=== PATIENT | female | born 1995 | race Caucasian/White ===

== ENCOUNTER 2018-05-18 18:16 | Emergency (ER) | payer MEDICAID, OTHER ==
[2018-05-18 18:41] VITALS: PULSE 102
[2018-05-18] MEDS ORDERED: Rocephin 1000 MG INJ IM ONE (19:42)
[2018-05-18] MEDS ORDERED: Rocephin 1000 MG INJ ONE (19:45)
[2018-05-18] MEDS ORDERED: XYLOCAINE 1% HCL 20 ML MDV ONE (19:46)
--- NOTE | 2018-05-18 20:03 | ERPHSYRPT ---
- History of Present Illness Time Seen by Provider: 05/18/18 19:10 Source: patient, family Exam Limitations: no limitations Patient Subjective Stated Complaint: pt reports boil to tailbone for jade 1 wk- states that she was treated at [facility] and found out she was - states that since that time wound has began to drain-increase drainage with time -states that drainage is green in color and smells very bad-denies fever-states that it hurts however with being pregant she can only take tylenol Triage Nursing Assessment: pt pink warm and eta-mcydu-owhhjndmr all questions correctly-redness swelling noted to tailbone area-drainage noted-foul smell noted-resp easy and nonlabored Physician History: 22 y/o white female who is 4 weeks presents with tender, red area of skin overlying tailbone. now with drainage. pt has had sx for a week. Timing/Duration: week(s) (1) Quality: burning, painful Severity: mild (worse if pressure on it) Possible Causes: other (pilonidal cyst) Associated Symptoms: change in skin texture, No difficulty breathing, No fever Allergies/Adverse Reactions: No Known Drug Allergies Allergy (Unverified 05/18/18 18:41) Hx Tetanus, Diphtheria Vaccination/Date Given: Yes Hx Influenza Vaccination/Date Given: No Hx Pneumococcal Vaccination/Date Given: No Immunizations Up to Date: Yes - Review of Systems Constitutional: No Symptoms Eyes: No Symptoms Ears, Nose, & Throat: No Symptoms Respiratory: No Symptoms Cardiac: No Symptoms Abdominal/Gastrointestinal: No Symptoms Genitourinary Symptoms: No Symptoms Musculoskeletal: No Symptoms Skin: Other (tender localized tenderness buttock) Neurological: No Symptoms Psychological: No Symptoms Endocrine: No Symptoms Hematologic/Lymphatic: No Symptoms Immunological/Allergic: No Symptoms All Other Systems: Reviewed and Negative - Past Medical History Pertinent Past Medical History: No Neurological History: No Pertinent History ENT History: No Pertinent History Cardiac History: No Pertinent History Respiratory History: No Pertinent History Endocrine Medical History: No Pertinent History Musculoskeletal History: No Pertinent History GI Medical History: No Pertinent History History: No Pertinent History Psycho-Social History: No Pertinent History Female Reproductive Disorders: No Pertinent History - Past Surgical History Past Surgical History: No Neuro Surgical History: No Pertinent History Cardiac: No Pertinent History Respiratory: No Pertinent History Gastrointestinal: No Pertinent History Genitourinary: No Pertinent History Musculoskeletal: No Pertinent History Female Surgical History: No Pertinent History - Social History Smoking Status: Current every day smoker How long have you smoked: yrs Exposure to second hand smoke: Yes Drug Use: none Patient Lives Alone: No - Female History Hx Now: Yes (5 wks) - Nursing Vital Signs Nursing Vital Signs: Initial Vital Signs Temperature 99.1 F 05/18/18 18:34 Pulse Rate 102 H 05/18/18 18:34 Respiratory Rate 18 05/18/18 18:34 Blood Pressure 107/74 05/18/18 18:34 O2 Sat by Pulse Oximetry 100 05/18/18 18:34 Pain Scale Pain Intensity 7 - Physical Exam General Appearance: mild distress, alert, anxiety Eye Exam: PERRL/EOMI, eyes nml inspection Ears, Nose, Throat Exam: normal ENT inspection Neck Exam: normal inspection, non-tender, supple, full range of motion Respiratory Exam: normal breath sounds, lungs clear, airway intact, No chest tenderness, No respiratory distress Cardiovascular Exam: regular rate/rhythm, normal heart sounds, normal peripheral pulses Gastrointestinal/Abdomen Exam: soft, normal bowel sounds, rebound, No tenderness , No guarding Pelvic Exam: not done Rectal Exam: deferred Back Exam: normal inspection, normal range of motion, No CVA tenderness, No vertebral tenderness Extremity Exam: normal inspection, normal range of motion, pelvis stable Neurologic Exam: alert, oriented x 3, cooperative, shank boner II-XII nml as tested, normal mood/affect Skin Exam: other (infected pilonidal cyst upper midline buttock with single midline pore present. pus expressed out until no more pus present. pus with malodor.) Lymphatic Exam: No adenopathy SpO2 Interpretation: normal SpO2: 100 Oxygen Delivery: Room Air - Course Nursing assessment & vital signs reviewed: Yes Ordered Tests: Medication Summary Discontinued Medications Generic Name Dose Route Start Last Admin Trade Name Freq PRN Reason Stop Dose Admin Acetaminophen 650 mg 05/18/18 20:05 Tylenol 325 Mg PO 05/18/18 20:06 STAT STA Ceftriaxone Sodium 1,000 mg 05/18/18 19:42 05/18/18 19:52 Rocephin 1000 Mg Inj IM 05/18/18 19:43 1,000 mg STAT ONE Administration Ceftriaxone Sodium Confirm 05/18/18 19:45 Rocephin 1000 Mg Inj Administered 05/18/18 19:46 Dose 1,000 mg .ROUTE .STK-MED ONE Lidocaine HCl Confirm 05/18/18 19:46 Xylocaine 1% Hcl 20 Ml Mdv Administered 05/18/18 19:47 Dose 3 ml .ROUTE .STK-MED ONE - Progress Progress: improved, re-examined Progress Note: 05/18/18 20:12 pts pain improved with expression and removal of pus from site. - Departure Time of Disposition: 20:13 Departure Disposition: Home Clinical Impression: Pilonidal cyst with abscess Condition: Stable Critical Care Time: No Referrals: ALYCIA MONTES DE OCA [Primary Care Provider] - Additional Instructions: take medications as prescribed. sitz bath with warm soapy water or epsom salts two times daily. follow up with primary doctor for persistent symptoms. return to ER for worsening symptoms Prescriptions: Cephalexin Mh 500 mg [Keflex 500 mg] 500 mg PO TID #21 capsule
[2018-05-18] MEDS ORDERED: TYLENOL 325 MG PO STA (20:05)
[2018-05-18] MEDS ORDERED: TYLENOL 325 MG ONE (20:28)
[2018-05-18 20:38] VITALS: O2SAT 98
[2018-05-18 20:39] VITALS: BP 107/74
== END 2018-05-18 20:39 | disposition home or self-care (01) ==
LOC: ED 18:16
DX: O26.891 Other specified pregnancy related conditions, first trimester (principal); Z3A.01 Less than 8 weeks gestation of pregnancy; L05.01 Pilonidal cyst with abscess
CPT/HCPCS: 96372; 99283; J0696; A9270-GY

== ENCOUNTER 2022-06-12 16:12 | Emergency (ER) | payer OTHER ==
[2022-06-12 16:29] VITALS: BP 162/94
[2022-06-12] MEDS ORDERED: TORAdol 30 mg Injection IM ONE (16:45)
--- NOTE | 2022-06-12 16:50 | ERPHSYRPT ---
- History of Present Illness Time Seen by Provider: 06/12/22 16:19 Source: patient Exam Limitations: no limitations Patient Subjective Stated Complaint: PT states "I will admit you are my second opinion. I dropped a boom box on my right hand this morning and I went to [facility] and they said it was badly bruised and to take motrin but that is not helping and the pain is horrible." Triage Nursing Assessment: PT presented alert and oriented X3, skin pwd Pt ambulates with an upright steady gait, able to speak in clear full sentences. PT right hand swollen and bruised. Physician History: 27 years old right-handed dominant female presented in the ER with chief complaint of right hand pain and swelling after a heavy Bluetooth speaker fell on her right hand while she was cleaning at home this morning around 12:30 AM. Patient reports moderate to severe sharp pain with associated swelling and more pain with movements at wrist and fingers with radiation to distally and proximally right upper extremity. She was seen at [facility] and per patient her x-ray was negative for fracture dislocation, was given ibuprofen 600 which she has taken 1 dose and does not feel much relief and decided to be seen in this ER. Patient is able to move her wrist and fingers with minimal pain. Reports having occasional tingling sensation in the fingers. 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 Occurred: this morning Method of Injury: direct blow Quality: sharpness Severity of Pain-Max: moderate Severity of Pain-Current: moderate Extremities Pain Location: hand: right Modifying Factors: Improves With: immobilization. Worsens With: movement Associated Symptoms: none Allergies/Adverse Reactions: No Known Drug Allergies Allergy (Verified 06/12/22 16:29) Home Medications: Venlafaxine HCl ER 75 mg [Effexor XR 75 MG] 75 mg PO DAILY 06/12/22 [History] Hx Tetanus, Diphtheria Vaccination/Date Given: Yes Hx Influenza Vaccination/Date Given: No Hx Pneumococcal Vaccination/Date Given: No Immunizations Up to Date: Yes Travel Risk - International Travel Have you traveled outside of the country in past 3 weeks: No - Coronavirus Screening Are you exhibiting any of the following symptoms?: No Close contact with a COVID-19 positive Pt in past 14-21 Days: No - Vaccine Status Have you recieved a Covid-19 vaccination: No - Review of Systems Constitutional: No Symptoms Ears, Nose, & Throat: No Symptoms Respiratory: No Symptoms Cardiac: No Symptoms Abdominal/Gastrointestinal: No Symptoms Musculoskeletal: Injury Skin: No Symptoms Neurological: No Symptoms Psychological: No Symptoms Endocrine: No Symptoms Hematologic/Lymphatic: No Symptoms Immunological/Allergic: No Symptoms - Past Medical History Pertinent Past Medical History: No Neurological History: No Pertinent History ENT History: No Pertinent History Cardiac History: No Pertinent History Respiratory History: No Pertinent History Endocrine Medical History: No Pertinent History Musculoskeletal History: No Pertinent History GI Medical History: No Pertinent History History: No Pertinent History Psycho-Social History: No Pertinent History Female Reproductive Disorders: No Pertinent History - Past Surgical History Past Surgical History: No Neuro Surgical History: No Pertinent History Cardiac: No Pertinent History Respiratory: No Pertinent History Gastrointestinal: No Pertinent History Genitourinary: No Pertinent History Musculoskeletal: No Pertinent History Female Surgical History: No Pertinent History - Social History Smoking Status: Current every day smoker How long have you smoked: yrs Exposure to second hand smoke: Yes Drug Use: none Patient Lives Alone: No - Female History Hx Last Menstrual Period: 06/11/2022 Hx Now: No - Nursing Vital Signs Nursing Vital Signs: Initial Vital Signs Temperature 97.6 F 06/12/22 16:25 Pulse Rate 77 06/12/22 16:25 Respiratory Rate 20 06/12/22 16:25 Blood Pressure 162/94 06/12/22 16:25 O2 Sat by Pulse Oximetry 100 06/12/22 16:25 Pain Scale Pain Intensity 8 - Physical Exam General Appearance: no apparent distress, alert Neck Exam: normal inspection, full range of motion Cardiovascular/Respiratory Exam: normal breath sounds, regular rate/rhythm Wrist Exam: normal inspection, non-tender, no evidence of injury, normal ROM Hand Exam: normal ROM, bone tenderness, soft tissue tenderness (Dorsum of right hand with swelling, blanchable, tenderness diffusely.), swelling Neuro/Tendon Exam: normal sensation, normal motor functions, normal tendon functions Mental Status Exam: alert, oriented x 3, cooperative Skin Exam: normal color SpO2 Interpretation: normal SpO2: 100 O2 Delivery: Room Air Ordered Tests: Active Orders 24 hr Category Date Time Status HAND (MINIMUM 3 VIEWS) Stat Exams 06/12/22 Ordered Medication Summary Discontinued Medications Generic Name Dose Route Start Last Admin Trade Name Freq PRN Reason Stop Dose Admin Ketorolac Tromethamine 30 mg 06/12/22 16:45 06/12/22 17:29 Ketorolac Tromethamine 30 Mg/Ml Inj IM 06/12/22 16:46 30 mg STAT ONE Administration Ketorolac Tromethamine Confirm 06/12/22 17:27 Ketorolac Tromethamine 30 Mg/Ml Inj Administered 06/12/22 17:28 Dose 30 mg .ROUTE .STK-MED ONE - Progress Progress: improved Progress Note: she is given Toradol for symptomatic relief. Recommended ice application. Could not obtain x-ray report from [facility] on repeated calling, have done x-ray and here which is negative for fracture reviewed by me, official report is pending. I believe patient has contusion, will place in a splint and outpatient follow-up with orthopedic surgery recommended. Discussed signs symptoms of worsening needing return to ER which he seems understanding. 06/12/22 17:51 Counseled pt/family regarding: diagnosis, need for follow-up - Departure Departure Disposition: Home Clinical Impression: Contusion of hand excluding finger Condition: Stable Critical Care Time: No Referrals: LEIGHTON JARAMILLO MD [Primary Care Provider] - Follow up/PCP as directed ORTHO - DIDI RAMSEY NP [NON-STAFF PHY W/O PRIVILEGES] - Follow up/PCP as directed (Tuesday for reevaluation) Instructions: Hand Fracture (DC), Contusion (DC) Additional Instructions: Take Tylenol/ibuprofen as needed for pain, keep elevated, intermittent ice application. Follow-up with orthopedic surgery for reevaluation. Return to ER for intractable pain, difficulty movements of fingers wrist, numbness etc.
[2022-06-12] MEDS ORDERED: TORAdol 30 mg Injection ONE (17:27)
[2022-06-12 18:04] VITALS: PULSE 60; O2SAT 96
--- NOTE | 2022-06-12 21:42 | XRAY ---
Indication: Pain following injury. Comparison: July 26, 2013. 3 view right hand obtained. Again no bony, articular, or soft tissue abnormalities.
== END 2022-06-12 18:04 | disposition home or self-care (01) ==
LOC: ED 16:12
DX: S60.221A Contusion of right hand, initial encounter (principal); W20.8XXA Other cause of strike by thrown, projected or falling object, initial encounter; Y93.E9 Activity, other interior property and clothing maintenance; M79.641 Pain in right hand; Z72.0 Tobacco use; Z79.899 Other long term (current) drug therapy; Z28.310 Unvaccinated for COVID-19
CPT/HCPCS: 73130; 96372; 99283; J1885; L3908

== ENCOUNTER 2024-07-25 21:32 | Emergency (ER) | payer SELFPAY ==
[2024-07-25 21:50] VITALS: O2SAT 100
--- NOTE | 2024-07-25 22:00 | ERPHSYRPT ---
- History of Present Illness Time Seen by Provider: 07/25/24 21:57 Historian: patient Exam Limitations: no limitations Patient Subjective Stated Complaint: pt states she has been having intermittent chest pain for last few months. states when she has pain it is 7/10 and is worse with stress. states she has had a lot of stress recently. has no pain at this time. Triage Nursing Assessment: pt alert and oriented, answers questions approp. pt ambulates into room, with steady gait noted. respirations nonlabored. skin warm and dry. heart rate 72 on monitor, sinus rhythm. Physician History: 29-year-old female no significant past cardiac history presents to our emergency department for evaluation of substernal chest pain that has been intermittent for the past few weeks. Patient states she had an episode today became concerned and presented to our ED. No active pain at this time. Patient voices no other complaints or concerns at this time. Portions of this note were created with voice recognition technology. There may be grammatical, spelling, punctuation or sound alike errors Timing/Duration: week(s) (Few weeks) Activities at Onset: none Quality: aching Location: substernal Chest Pain Radiation: no radiation Severity of Pain-Max: moderate Severity of Pain-Current: mild Modifying Factors: Improves With: nothing Associated Symptoms: denies symptoms Prior Chest Pain/Cardiac Workup: no prior chest pain Nitro Today/Relief: no nitro taken today Aspirin Treatment Today: no aspirin today Allergies/Adverse Reactions: No Known Drug Allergies Allergy (Verified 07/25/24 21:50) Home Medications: Venlafaxine HCl ER 75 mg [Effexor XR 75 MG] 150 mg PO DAILY 06/12/22 [History] Hx Tetanus, Diphtheria Vaccination/Date Given: Yes Hx Influenza Vaccination/Date Given: No Hx Pneumococcal Vaccination/Date Given: No Immunizations Up to Date: Yes Travel Risk - International Travel Have you traveled outside of the country in past 3 weeks: No - Emerging Infectious Disease Are you exhibiting symptoms associated with any current EIDs: No - Review of Systems Constitutional: No Symptoms, No Fever, No Chills Eyes: No Symptoms Ears, Nose, & Throat: No Symptoms Respiratory: No Symptoms, No Cough, No Dyspnea Cardiac: No Symptoms, No Chest Pain, No Edema, No Syncope Abdominal/Gastrointestinal: No Symptoms, No Abdominal Pain, No Nausea, No Vomiting, No Diarrhea Genitourinary Symptoms: No Symptoms, No Dysuria Musculoskeletal: No Symptoms, No Back Pain, No Neck Pain Skin: No Symptoms, No Rash Neurological: No Symptoms, No Dizziness, No Focal Weakness, No Sensory Changes Psychological: No Symptoms Endocrine: No Symptoms Hematologic/Lymphatic: No Symptoms Immunological/Allergic: No Symptoms All Other Systems: Reviewed and Negative - Past Medical History Pertinent Past Medical History: No Neurological History: No Pertinent History ENT History: No Pertinent History Cardiac History: No Pertinent History Respiratory History: No Pertinent History Endocrine Medical History: No Pertinent History Musculoskeletal History: No Pertinent History GI Medical History: No Pertinent History History: No Pertinent History Psycho-Social History: Anxiety, Depression Female Reproductive Disorders: No Pertinent History - Past Surgical History Past Surgical History: No Neuro Surgical History: No Pertinent History Cardiac: No Pertinent History Respiratory: No Pertinent History Gastrointestinal: No Pertinent History Genitourinary: No Pertinent History Musculoskeletal: No Pertinent History Female Surgical History: No Pertinent History - Female History Hx Last Menstrual Period: 1 month- irregular Hx Now: No (nexplanon) - Social History Smoking Status: Former smoker How long have you smoked: yrs Exposure to second hand smoke: Yes Drug Use: none Patient Lives Alone: No - Social Determinants of Health Will the patient participate in the screening: Yes Do you worry about a steady place to live?: No Do you have any problems with any of the following?: No known problems In the past 12 months,have you had to go without utilities?: No Transportation Issues: No Has anyone in your support network made you feel unsafe?: No Have you or anyone in your house had to go without enough: No - Nursing Vital Signs Nursing Vital Signs: Initial Vital Signs Pulse Rate 72 07/25/24 21:33 Respiratory Rate 16 07/25/24 21:33 O2 Sat by Pulse Oximetry 100 07/25/24 21:33 Pain Scale Pain Intensity 0 - Physical Exam General Appearance: no apparent distress, alert Eye Exam: PERRL/EOMI, eyes nml inspection Ears, Nose, Throat Exam: normal ENT inspection, moist mucous membranes Neck Exam: normal inspection, non-tender, supple, full range of motion Respiratory Exam: normal breath sounds, lungs clear, No respiratory distress Cardiovascular Exam: regular rate/rhythm, normal heart sounds Gastrointestinal/Abdomen Exam: soft, No tenderness, No mass Back Exam: normal inspection, No CVA tenderness, No vertebral tenderness Extremity Exam: normal inspection, normal range of motion Neurologic Exam: alert, oriented x 3, cooperative, normal mood/affect, sensation nml, No motor deficits Skin Exam: normal color, warm, dry, No jaundice SpO2 Interpretation: normal SpO2: 100 O2 Delivery: Room Air - Course Nursing assessment & vital signs reviewed: Yes EKG Interpreted by Me: RATE (69), Sinus Rhythm, NORMAL AXIS, NORMAL INTERVALS, NORMAL QRS - Radiology Exams Chest X-ray Interpretation: Interpreted by me (No acute findings) Ordered Tests: Active Orders 24 hr Category Date Time Status Apple Thinner STAT Care 07/25/24 21:56 Active EKG-ER Only STAT Care 07/25/24 21:55 Active IV Insertion STAT Care 07/25/24 21:55 Active Pulse Oximetry (ED) STAT Care 07/25/24 21:55 Active CHEST 1 VIEW (PORTABLE) Stat Exams 07/26/24 00:17 Taken CBC W DIFF Stat Lab 07/25/24 21:23 Completed CMP Stat Lab 07/25/24 21:23 Completed D-DIMER QUANTITATIVE Stat Lab 07/25/24 21:23 Completed HCG QUALITATIVE, URINE Stat Lab 07/25/24 22:50 Completed TROPONIN Q4H Lab 07/25/24 21:23 Completed TROPONIN Q4H Lab 07/26/24 00:13 Completed TROPONIN Q4H Lab 07/26/24 06:00 Ordered UA W/RFX UR CULTURE Stat Lab 07/25/24 22:50 Completed Lab/Rad Data: Laboratory Result Diagrams 07/25/24 21:23 07/25/24 21:23 Laboratory Results 07/26/24 07/25/24 07/25/24 Range/Units 00:13 22:50 22:50 WBC (3.98-10.04) x10^3/uL RBC (3.93-5.22) x10^6/uL Hgb (11.2-15.7) g/dL Hct (34.1-44.9) % MCV (79.4-94.8) fL MCH (25.6-32.2) pg MCHC (32.2-35.5) g/dL RDW (11.7-14.4) % Plt Count (182-369) x10^3/uL MPV (9.4-12.3) fL Gran % (34.0-71.1) % Immature Gran % (Auto) (0.001-0.429) % Nucleat RBC Rel Count (0.00-0.2) % Eos # (Auto) (0.04-0.36) x10^3/uL Immature Gran # (Auto) (0.001-0.031) x10^3u/L Absolute Lymphs (auto) (1.18-3.74) x10^3/uL Absolute Monos (auto) (0.24-0.86) x10^3/uL Absolute Nucleated RBC (0.00-0.012) x10^3u/L Lymphocytes % (19.3-51.7) % Monocytes % (4.7-12.5) % Eosinophils % (0.7-5.8) % Basophils % (0.1-1.2) % Absolute Granulocytes (1.56-6.13) x10^3/uL Basophils # (0.01-0.08) x10^3/uL D-Dimer (0.0-0.50) mg/L Sodium (135-145) mmol/L Potassium (3.5-5.1) mmol/L Chloride (98-107) mmol/L Carbon Dioxide (22-30) mmol/L Anion Gap (5-15) MEQ/L BUN (7-17) mg/dL Creatinine (0.52-1.04) mg/dL Estimated GFR ML/MIN Glucose (74-106) mg/dL Calcium (8.4-10.2) mg/dL Total Bilirubin (0.2-1.3) mg/dL AST (14-36) U/L ALT (0-35) U/L Alkaline Phosphatase (38-126) U/L Troponin I < 0.012 (0.000-0.033) ng/mL Serum Total Protein (6.3-8.2) g/dL Albumin (3.5-5.0) g/dL Urine Color Yellow (Yellow) Urine Appearance Turbid A (Clear) Urine pH 7.5 (4.6-8.0) Ur Specific [place] 1.015 (1.005-1.030) Urine Protein Negative (Negative) Urine Glucose (UA) Negative (Negative) mg/dL Urine Ketones Negative (Negative) Urine Blood Negative (Negative) Urine Nitrite Negative (Negative) Urine Bilirubin Negative (Negative) Urine Urobilinogen 1.0 A (0.2) mg/dL Ur Leukocyte Esterase Trace A (Negative) U Hyaline Cast (Auto) NONE SEEN (0-2) /LPF Urine Microscopic RBC 0-2 (0-5) /HPF Urine Microscopic WBC 0-2 (0-5) /HPF Ur Epithelial Cells None Seen (None Seen) /HPF Urine Bacteria None Seen (None Seen) /HPF Urine Culture Reflexed NO (NO) Urine HCG, Qual NEGATIVE (NEGATIVE) 07/25/24 07/25/24 07/25/24 Range/Units 21:23 21:23 21:23 WBC (3.98-10.04) x10^3/uL RBC (3.93-5.22) x10^6/uL Hgb (11.2-15.7) g/dL Hct (34.1-44.9) % MCV (79.4-94.8) fL MCH (25.6-32.2) pg MCHC (32.2-35.5) g/dL RDW (11.7-14.4) % Plt Count (182-369) x10^3/uL MPV (9.4-12.3) fL Gran % (34.0-71.1) % Immature Gran % (Auto) (0.001-0.429) % Nucleat RBC Rel Count (0.00-0.2) % Eos # (Auto) (0.04-0.36) x10^3/uL Immature Gran # (Auto) (0.001-0.031) x10^3u/L Absolute Lymphs (auto) (1.18-3.74) x10^3/uL Absolute Monos (auto) (0.24-0.86) x10^3/uL Absolute Nucleated RBC (0.00-0.012) x10^3u/L Lymphocytes % (19.3-51.7) % Monocytes % (4.7-12.5) % Eosinophils % (0.7-5.8) % Basophils % (0.1-1.2) % Absolute Granulocytes (1.56-6.13) x10^3/uL Basophils # (0.01-0.08) x10^3/uL D-Dimer < 0.19 (0.0-0.50) mg/L Sodium 139 (135-145) mmol/L Potassium 4.1 (3.5-5.1) mmol/L Chloride 104 (98-107) mmol/L Carbon Dioxide 24 (22-30) mmol/L Anion Gap 14.3 (5-15) MEQ/L BUN 14 (7-17) mg/dL Creatinine 0.97 (0.52-1.04) mg/dL Estimated GFR 82.1 ML/MIN Glucose 99 (74-106) mg/dL Calcium 9.4 (8.4-10.2) mg/dL Total Bilirubin 0.40 (0.2-1.3) mg/dL AST 24 (14-36) U/L ALT 8 (0-35) U/L Alkaline Phosphatase 70 (38-126) U/L Troponin I < 0.012 (0.000-0.033) ng/mL Serum Total Protein 7.5 (6.3-8.2) g/dL Albumin 4.4 (3.5-5.0) g/dL Urine Color (Yellow) Urine Appearance (Clear) Urine pH (4.6-8.0) Ur Specific [place] (1.005-1.030) Urine Protein (Negative) Urine Glucose (UA) (Negative) mg/dL Urine Ketones (Negative) Urine Blood (Negative) Urine Nitrite (Negative) Urine Bilirubin (Negative) Urine Urobilinogen (0.2) mg/dL Ur Leukocyte Esterase (Negative) U Hyaline Cast (Auto) (0-2) /LPF Urine Microscopic RBC (0-5) /HPF Urine Microscopic WBC (0-5) /HPF Ur Epithelial Cells (None Seen) /HPF Urine Bacteria (None Seen) /HPF Urine Culture Reflexed (NO) Urine HCG, Qual (NEGATIVE) 07/25/24 Range/Units 21:23 WBC 8.6 (3.98-10.04) x10^3/uL RBC 4.83 (3.93-5.22) x10^6/uL Hgb 14.2 (11.2-15.7) g/dL Hct 42.9 (34.1-44.9) % MCV 88.8 (79.4-94.8) fL MCH 29.4 (25.6-32.2) pg MCHC 33.1 (32.2-35.5) g/dL RDW 11.6 L (11.7-14.4) % Plt Count 308 (182-369) x10^3/uL MPV 8.9 L (9.4-12.3) fL Gran % 58.4 (34.0-71.1) % Immature Gran % (Auto) 0.3 (0.001-0.429) % Nucleat RBC Rel Count 0.0 (0.00-0.2) % Eos # (Auto) 0.01 L (0.04-0.36) x10^3/uL Immature Gran # (Auto) 0.03 (0.001-0.031) x10^3u/L Absolute Lymphs (auto) 2.88 (1.18-3.74) x10^3/uL Absolute Monos (auto) 0.63 (0.24-0.86) x10^3/uL Absolute Nucleated RBC 0.00 (0.00-0.012) x10^3u/L Lymphocytes % 33.4 (19.3-51.7) % Monocytes % 7.3 (4.7-12.5) % Eosinophils % 0.1 L (0.7-5.8) % Basophils % 0.5 (0.1-1.2) % Absolute Granulocytes 5.03 (1.56-6.13) x10^3/uL Basophils # 0.04 (0.01-0.08) x10^3/uL D-Dimer (0.0-0.50) mg/L Sodium (135-145) mmol/L Potassium (3.5-5.1) mmol/L Chloride (98-107) mmol/L Carbon Dioxide (22-30) mmol/L Anion Gap (5-15) MEQ/L BUN (7-17) mg/dL Creatinine (0.52-1.04) mg/dL Estimated GFR ML/MIN Glucose (74-106) mg/dL Calcium (8.4-10.2) mg/dL Total Bilirubin (0.2-1.3) mg/dL AST (14-36) U/L ALT (0-35) U/L Alkaline Phosphatase (38-126) U/L Troponin I (0.000-0.033) ng/mL Serum Total Protein (6.3-8.2) g/dL Albumin (3.5-5.0) g/dL Urine Color (Yellow) Urine Appearance (Clear) Urine pH (4.6-8.0) Ur Specific [place] (1.005-1.030) Urine Protein (Negative) Urine Glucose (UA) (Negative) mg/dL Urine Ketones (Negative) Urine Blood (Negative) Urine Nitrite (Negative) Urine Bilirubin (Negative) Urine Urobilinogen (0.2) mg/dL Ur Leukocyte Esterase (Negative) U Hyaline Cast (Auto) (0-2) /LPF Urine Microscopic RBC (0-5) /HPF Urine Microscopic WBC (0-5) /HPF Ur Epithelial Cells (None Seen) /HPF Urine Bacteria (None Seen) /HPF Urine Culture Reflexed (NO) Urine HCG, Qual (NEGATIVE) - Progress Progress: improved Air Movement: good Progress Note: 29-year-old female no significant past medical history presents to emergency department for evaluation of chest pain. Physical exam nonremarkable. Troponin negative x 2. D-dimer negative. Chest x-ray negative. EKG sinus rhythm. Patient asymptomatic. Vital stable. No indication for further workup will discharge home. Patient agrees to follow-up with primary care doctor within 48 hours for reevaluation. Portions of this note were created with voice recognition technology. There may be grammatical, spelling, punctuation or sound alike errors Complexity of problem addressed is moderate acute complicated. No critical care time. Complex of data reviewed and analyzed is moderate. Test ordered test reviewed results analyzed and correlated clinically with history and physical examination. Risk of complication and or risk of morbidity/mortality of patient management is low. Vital stable. Time spent to discharge patient is approximately 15 minutes. Plan of care established for shared decision making. No social determinants of health present to impede follow-up. Patient voices no other complaints or concerns at this time. Patient agrees to follow-up with her primary care doctor within 48 hours for re evaluation. Portions of this note were created with voice recognition technology. There may be grammatical, spelling, punctuation or sound alike errors 07/26/24 01:40 Blood Culture(s) Obtained: No Antibiotics given: No Counseled pt/family regarding: diagnosis, need for follow-up, rad results - Departure Departure Disposition: Home Clinical Impression: Chest pain Condition: Stable Critical Care Time: No Referrals: LEIGHTON JARAMILLO MD [Primary Care Provider] - Follow up/PCP as directed Additional Instructions: Discharge/Care Plan SEAN BAXTER was seen on 07/26/24 in the Emergency Room. The patient was counseled regarding Diagnosis,Lab results, Imaging studies, need for follow up and when to return to the Emergency Room. Prescriptions given: Discharge Note I have spoken with the patient and/or caregivers. I have explained the patient's condition, diagnosis and treatment plan based on the information available to me at this time. I have answered the patient's and/or caregiver's questions and addressed any concerns. The patient and/or caregivers have as good understanding of the patient's diagnosis, condition and treatment plan as can be expected at this point. The vital signs have been stable. The patient's condition is stable and appropriate for discharge from the emergency department. The patient will pursue further outpatient evaluation with the primary care physician or other designated or consulting physician as outlined in the discharge instructions. The patient and/or caregivers are agreeable to this plan of care and follow-up instructions have been explained in detail. The patient and/or caregivers have received these instruction. The patient/and or caregivers are aware that any significant change in condition or worsening of symptoms should prompt an immediate return to this or the closest emergency department or call 911.
[2024-07-25 22:05] LABS: Absolute Neutrophil Ct (ANC) 5.03 x10^3/uL (1.56-6.13); BASOPHIL % 0.5 % (0.1-1.2); Basophil (Absolute #) 0.04 x10^3/uL (0.01-0.08); Eosinophil % 0.1 % (0.7-5.8); Eosinophil (Absolute #) 0.01 x10^3/uL (0.04-0.36); Hematocrit 42.9 % (34.1-44.9); Hemoglobin 14.2 g/dL (11.2-15.7); IMMATURE GRAN # 0.03 x10^3u/L (0.001-0.031); IMMATURE GRAN % 0.3 % (0.001-0.429); Lymphocyte (Absolute #) 2.88 x10^3/uL (1.18-3.74); Lymphocytes % 33.4 % (19.3-51.7); Mean Cell Volume 88.8 fL (79.4-94.8); Mean Corpuscular Hemoglobin 29.4 pg (25.6-32.2); Mean Corpuscular Hgb Concent. 33.1 g/dL (32.2-35.5); Mean Platelet Volume 8.9 fL (9.4-12.3); Monocyte (Absolute #) 0.63 x10^3/uL (0.24-0.86); Monocytes % 7.3 % (4.7-12.5); Neutrophil % 58.4 % (34.0-71.1); Platelet Count 308 x10^3/uL (182-369); Red Blood Count 4.83 x10^6/uL (3.93-5.22); Red Cell Distribution Width 11.6 % (11.7-14.4); White Blood Count 8.6 x10^3/uL (3.98-10.04)
[2024-07-25 22:19] LABS: ALBUMIN 4.4 g/dL (3.5-5.0); ANION GAP 14.3 MEQ/L (5-15); BILIRUBIN,TOTAL 0.4 mg/dL (0.2-1.3); Calcium 9.4 mg/dL (8.4-10.2); Creatinine 1 0.97 mg/dL (0.52-1.04); EST GLOMERULAR FILTRATION RATE 82.1 ML/MIN; Potassium 4.1 mmol/L (3.5-5.1); Total Protein 7.5 g/dL (6.3-8.2)
[2024-07-25 23:02] LABS: Appearance Turbid (Clear); Bacteria None Seen /HPF (None Seen); Bilirubin Negative (Negative); Blood Negative (Negative); Epithelial Cells None Seen /HPF (None Seen); Glucose, Urine Negative (Negative); Hyaline Casts NONE SEEN /LPF (0-2); Ketones Negative (Negative); Leukocyte Esterase Trace (Negative); Nitrite Negative (Negative); Ph 7.5 (4.6-8.0); Protein,Urine Dip Negative (Negative); RBC 0-2 /HPF (0-5); Specific Gravity 1.015 (1.005-1.030); WBC 0-2 /HPF (0-5)
[2024-07-25 23:04] LABS: HCG URINE TEST NEGATIVE (NEGATIVE)
[2024-07-26 01:57] VITALS: BP 112/72; PULSE 74; RESP 16; TEMP 97.2
--- NOTE | 2024-07-26 08:43 | XRAY ---
Indication: Pain. Comparison: None Portable apical lordotic chest demonstrates normal heart, lungs, and bony thorax.
== END 2024-07-26 01:56 | disposition home or self-care (01) ==
LOC: ED 21:32
DX: R07.9 Chest pain, unspecified (principal); Z79.899 Other long term (current) drug therapy
CPT/HCPCS: 36415; 71045; 80053; 81001; 81025; 84484; 85025; 85379; 93005; 93041; 94760; 99284